=== PATIENT | male | born 1970 | race Caucasian/White ===

== ENCOUNTER 2021-05-23 11:09 | Emergency (ER) | payer OTHER ==
[~2021-05-23] VITALS: Ht 172.7 cm; Wt 82.0 kg
[2021-05-23] MEDS ORDERED: ONDANSETRON HCL 4MG/2ML INJ IV ONE (12:00)
[2021-05-23] MEDS ORDERED: KETAMINE HCL 50 MG/ML 10ML IV ONE (12:00)
[2021-05-23] MEDS ORDERED: PROPOFOL 200MG/20ML VIAL IV ONE (12:00)
[2021-05-23] MEDS ORDERED: IBUP-2030 PO (13:27)
[2021-05-23 13:48] VITALS: BP 175/95
== END 2021-05-23 14:06 | disposition home or self-care (01) ==
LOC: ER 11:09
DX: S82.891A Other fracture of right lower leg, initial encounter for closed fracture (principal); I49.9 Cardiac arrhythmia, unspecified; W01.0XXA Fall on same level from slipping, tripping and stumbling without subsequent striking against object, initial encounter; Y93.89 Activity, other specified; Y92.89 Other specified places as the place of occurrence of the external cause; Y99.8 Other external cause status
CPT/HCPCS: 27840; 73590; 73600; 93005; 96374; 99152; 99285; J2405; J2704; J3490; Z7610